=== PATIENT | male | born 1950 | race Caucasian/White ===

== ENCOUNTER 2018-12-24 06:42 | Inpatient (IN) ==
[~2018-12-24 06:42] MED LIST: ceFAZolin 1,000 MG, Sodium Chloride IRRigation 1,000 ML IR ONE
[2018-12-24] MEDS ORDERED: Heparin 1,000 UNITS/500 mL 500 ML ONE ×2 (06:55→08:15)
[2018-12-24] MEDS ORDERED: Clindamycin 900 MG/50 ML 900 MG/50 ML IV.SOLN IVPB ONE (06:59)
[2018-12-24] MEDS ORDERED: Lidocaine -MPF 4% 5 ML AMPUL ONE (07:04)
[2018-12-24] MEDS ORDERED: Ondansetron 4 MG/2 ML VIAL ONE (07:04)
[2018-12-24] MEDS ORDERED: *HR* Rocuronium Bromide 50 MG/5 ML VIAL ONE ×3 (07:04→11:35)
[2018-12-24] MEDS ORDERED: Dexamethasone 4 MG/ML VIAL ONE ×2 (07:04→10:22)
[2018-12-24] MEDS ORDERED: Lidocaine -MPF 2% 2 ML VIAL ONE (07:04)
[2018-12-24] MEDS ORDERED: *HR* Succinylcholine 200 MG/10 ML VIAL IVP ONE (07:04)
[2018-12-24] MEDS ORDERED: *HR* Propofol 200 MG/20 ML VIAL IVP ONE ×2 (07:06→11:48)
[2018-12-24] MEDS ORDERED: *HR* FentaNYL (PF) 100 MCG/2 ML VIAL ONE (07:06)
[2018-12-24] MEDS ORDERED: *HR* Midazolam HCl 5 MG/5 ML VIAL IVP ONE (07:07)
[2018-12-24] MEDS ORDERED: *HR* Phenylephrine 10 MG/ML VIAL ONE (07:11)
[2018-12-24] MEDS ORDERED: Sodium Bicarbonate 50 MEQ/50 ML VIAL ONE ×2 (07:15→11:18)
[2018-12-24] MEDS ORDERED: Furosemide 40 MG/4 ML VIAL ONE (07:15)
[2018-12-24] MEDS ORDERED: Mannitol 20% 100 GM/500 ML IV.SOLN IVC ONE (07:15)
[2018-12-24] MEDS ORDERED: Nitroglycerin 25 MG/250 ML INFUS..BTL IVC ONE ×2 (07:15→07:43)
[2018-12-24] MEDS ORDERED: Dexmedetomidine HCl 400 MCG/100 ML MLS IVC ONE (07:16)
[2018-12-24] MEDS ORDERED: Albumin Human 5% 25.0 GM/500 ML VIAL ONE (07:24)
[2018-12-24] MEDS ORDERED: EPHEDrine 50 MG/ML VIAL ONE (07:26)
[2018-12-24] MEDS ORDERED: Heparin 1,000 UNITS/500 mL 1,000 ML ONE (07:30)
--- NOTE | 2018-12-24 07:30 | Vascular/Endovascular H&P ---
Date of Encounter: 12/24/18 Time of Encounter: 07:28 Assessment and Plan (1) Abdominal aortic aneurysm (AAA) without rupture Current Visit: Yes Status: Chronic Asymptomatic expansion of abdominal aortic aneurysm to 5.[address] angiogram demonstrates marked tortuosity of the neck of the aneurysm making it inappropriate for endovascular repair. Patient is to be admitted and undergo open repair of aneurysm. (2) Coronary artery disease Current Visit: No Status: Chronic Patient has history of a silent [place]. She has been worked up with preoperative stress test. There are no signs of active ischemia. Patient has had a total of 3 previous cardiac catheterizations. The last was in 2013. The patient has no active cardiac symptoms. Qualifiers: Coronary Disease-Associated Artery/Lesion type: [place] artery [place] vs. transplanted heart: [place] heart Associated angina: without angina Qualified Code(s): I25.10 - Atherosclerotic heart disease of [place] coronary artery without angina pectoris (3) Hypertension Current Visit: Yes Status: Chronic Patient has chronic hypertension Qualifiers: Hypertension type: essential hypertension Qualified Code(s): I10 - Essential (primary) hypertension History of Present Illness Chief complaint: Abdominal aortic aneurysm HPI: Mr. Villareal is a 68 year old male Who was seen in referral for increasing size of abdominal aortic aneurysm. Patient had an aneurysm measured at 4.7 cm last year. On follow-up scan earlier this spring the aneurysm and now grown to 5.4 cm. The patient remains asymptomatic. There is no family history of aneurysm. Because of increase in size patient was referred to vascular surgery for treatment. For further information regarding this patient's history please refer to my clinic note in [facility] from November 20, 2018. Past Med Surg Social Fam HX - Past Medical History Medical history: coronary artery disease, diabetes, GERD, hyperlipidemia, hypertension, kidney stones, myocardial infarction, other Additional medical history: cataracts, CVD, silent myocardial ischemia, stable angina Psychiatric history: no psych history - Past Surgical History Surgical History: coronary bypass (CABG), other Additional surgical history: cardiac cath - Social History Smoking Status: Unknown if ever smoked Alcohol use: occasionally Drug use: none Medications and Allergies Allergy/AdvReac Type Severity Reaction Status Date / Time Penicillins Allergy Hives Verified 12/06/18 08:36 All Systems Review: The remainder of the systems were reviewed and are negative Exam Vital Signs, Last 4 Hours Temp Pulse Resp BP Pulse Ox 12/24/18 07:23 98.4 F 53 18 138/67 100 General: Present: Conversant, No Apparent Distress, Well developed, Well nourished HEENT: Present: Atraumatic, Normocephaly, Trachea midline Neck: Absent: JVD, Left Carotid bruit, Right Carotid bruit, Midline deformity, Tracheal deviation Cardiac: Present: Reg Rate and Rhythm, Normal S1 and S2 Lungs: Present: Normal Breath Sounds Neuro: Present: Alert and responsive Abdomen: Present: Soft, Non-tender, Other (Positive pulsatile mass corresponding to abdominal aortic aneurysm) Vascular: Present: Normal capillary refill. Absent: Clubbing, Cyanosis, Edema, Amputation(s) Skin: Present: No rashes noted on visualized skin
[2018-12-24] MEDS ORDERED: *HR* Norepinephrine 4 MG/4 ML VIAL IVC ONE (07:42)
[2018-12-24] MEDS ORDERED: *HR* Nitroprusside 50 MG VIAL IVC ONE (07:43)
--- NOTE | 2018-12-24 07:47 | Anesthesia Evaluation PreOp ---
Date of Encounter: 12/24/18 Time of Encounter: 07:49 - Past History Planned Operation: Open repair abdominal aortic aneurysm Cardiac History: [place], Angina (stable angina), HTN, Hyperlipidemia, Cardiac Surgery (1990), Other (excellent functional capacity) Pulmonary History: Former smoker (quit in 1990) [employer]OM[employer]BI[employer] History: Denies Any Significant HX Other Medical History: Renal (stones), GERD Anesthesia History: No Prior Anesthetic Complications Alcohol Use: occasionally Drug use: none Medications and Allergies Aspirin [Adult Aspirin] 81 mg PO DAILY 12/24/18 [History] Carvedilol 3.125 mg PO BID 12/24/18 [History] Gabapentin 600 mg PO BID 12/24/18 [History] Multivitamin [One Daily Essential] 1 tab PO DAILY 12/24/18 [History] [place]-3/Dha/Epa/Fish Oil [Fish Oil 1,000 mg Softgel] 1 cap PO DAILY 12/24/18 [History] Simvastatin [Zocor] 40 mg PO HS 12/24/18 [History] Allergy/AdvReac Type Severity Reaction Status Date / Time Penicillins Allergy Hives Verified 12/24/18 07:33 - Meds/Allergy Pre-op Review Medications Reviewed: Yes Allergies Reviewed: Yes Beta Blockers on Current Med List: Yes (coreg) If Beta Blockers taken, Date/Time (Last Dose taken): 12-24-18 coreg at 6 am Anesthesia Results - Labs Laboratory Tests 12/19/18 12/19/18 12/19/18 11:10 11:10 11:10 WBC 7.4 Hgb 14.1 Hct 41.8 Plt Count 214 PT 11.8 INR 1.0 APTT 31.6 Sodium 139 Potassium 4.6 Chloride 102 Carbon Dioxide 29 BUN 14 Creatinine 0.86 Est GFR ( Amer) > 60 Est GFR (Non-Af Amer) > 60 BUN/Creatinine Ratio 16 Glucose 91 Calculated Osmolality 288 Calcium 9.8 - Imaging Additional studies: CT: IMPRESSION: 1. Fusiform infrarenal abdominal aortic aneurysm measuring 5.4 cm maximally. Mural thrombus throughout the aneurysmal segment. 90 degrees apex right angulation of the proximal aortic neck. 2. 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 No other significant inflow disease. 3. No acute findings within the abdomen or pelvis. Previous cholecystectomy. 4. Colonic diverticulosis with no acute features. 5. Mild diffuse bladder wall thickening, likely accentuated by incomplete distention. Correlate for possible cystitis or bladder outlet obstruction. 6. Subpleural fibrotic changes at the lung bases. Nuclear stress: Indications: Pre-operative Impression: No perfusion evidence for ischemia. Small sized, moderate intensity fixed perfusion defect involving the distal anteroseptum and apex. Findings represent infarct. Small sized, moderate intensity fixed perfusion defect involving the distal inferolateral wall. Findings represent infarct. Pharmacologic stress ECG is negative for ischemia at level of heart rate achieved. Gated EF = 55%. Anesthesia Exam Last Vital Signs Temp 98.4 F 12/24/18 07:23 Pulse 53 12/24/18 07:23 Resp 18 12/24/18 07:23 BP 138/67 12/24/18 07:23 Pulse Ox 100 12/24/18 07:23 Weight: 75 kg NPO (# of Hours): > 8 hrs - HEENT Pupil (Motor): Pupils equal, EOMI Mallampati: II Teeth: Normal, Missing Denture Type: Upper: Complete Oral Opening: Greater than 3 - AUTOMO[employer] LOC: Oriented - Cardiac Rhythm: Regular Murmur: None - Pulmonary Breath Sounds: bilateral Clear Respiratory Effort: Symmetrical Anesthesia Assess/Plan ASA Score: 3 Level of consciousness: Cooperative Anesthetic Plan: General, Regional Nerve Block (TAP block) Regional Nerve Block Plan: TAP Monitoring Plan: Standard Monitors, A-Line, CVC Recovery Plan: PACU
[2018-12-24] MEDS ORDERED: CeFAZolin Syr 2,000MG/20 ML 2,000 MG/20 ML SYRINGE IVPB ONE (07:50)
[2018-12-24] MEDS ORDERED: *HR* OxyCODONE Immed Rel 5 MG TABLET PO PRN (07:51)
[2018-12-24] MEDS ORDERED: Acetaminophen IV 1,000 MG/100 ML INFUS..BTL IVPB ONE (07:51)
[2018-12-24] MEDS ORDERED: *HR* Metoprolol 5 MG/5 ML VIAL IVP PRN (07:51)
[2018-12-24] MEDS ORDERED: *HR* Vasopressin 20 UNIT/ML VIAL ONE (08:06)
[2018-12-24] MEDS ORDERED: ROPIVACAINE/PF/NS SYRINGE INTRAART ONE (08:12)
--- NOTE | 2018-12-24 09:09 | Anesthesia Procedures ---
Date of Encounter: 12/24/18 Time of Encounter: 09:00 Procedures: Anesthesia - Central Line Placement Right IJ Consent obtained: written consent Supplemental Oxygen via Nasal Cannula (L/min): 2 (ETT; patient under General Anesthesia) MD prep: mask, gown, gloves Central line prep: Chlorhexidine scrub, sterile drapes applied Amount of Anesthetics Used (mls): 0 (patient under General Anesthesia) Ultrasound used for placement: Yes Technique: Seldinger Lumen Inserted: Introducer Size / Length: 9 Fr / 10 cm Post procedure: sutured in place, good blood return, all ports aspirated, flushed, capped, sterile dressing applied Patient tolerated procedure: well, no complications Complications: none
[2018-12-24 09:36] LABS: ABG Base Excess -4 mEq/L (-2 to 3); ABG Chloride 109 mEq/L (98-107); ABG Glucose 105 mg/dL (60-95); ABG HCO3 22 mEq/L (21-27); ABG Ionized Calcium 1.24 mmol/L (1.15-1.35); ABG Oxygen Saturation 100 % (95-98); ABG PCO2 41 mmHg (35-45); ABG PH 7.33 pH Units (7.32-7.45); ABG PO2 239 mmHg (85-104); ABG TCO2 23 mEq/L (20-26)
[2018-12-24] MEDS ORDERED: *HR* Heparin 5,000 UNIT/ML VIAL ONE ×3 (10:10→11:58)
[2018-12-24 10:44] LABS: ABG Base Excess 0 mEq/L (-2 to 3); ABG Chloride 108 mEq/L (98-107); ABG Glucose 138 mg/dL (60-95); ABG HCO3 25 mEq/L (21-27); ABG Ionized Calcium 1.07 mmol/L (1.15-1.35); ABG Oxygen Saturation 100 % (95-98); ABG PCO2 41 mmHg (35-45); ABG PH 7.39 pH Units (7.32-7.45); ABG PO2 255 mmHg (85-104); ABG TCO2 26 mEq/L (20-26)
[2018-12-24] MEDS ORDERED: SUGAMMADEX SODIUM 500 MG/5 ML VIAL IV ONE (10:47)
[2018-12-24] MEDS ORDERED: *HR* PHENYLEPHRINE 1,000 MCG/10 ML SYRINGE IVP ONE (11:39)
[2018-12-24] MEDS ORDERED: *HR* HYDROMORPHONE 2 MG/ML VIAL ONE (11:42)
[2018-12-24 11:43] LABS: VBG Base Excess -3 mEq/L; VBG Chloride 107 mEq/L (98-107); VBG Glucose 141 mg/dl (65-95); VBG HCO3 22 mEq/L (21-27); VBG Ionized Calcium 1.27 mmol/L (1.15-1.35); VBG Oxygen Saturation 100 %; VBG PCO2 40 mmHg (41-51); VBG PH 7.35 pH Units (7.32-7.42); VBG PO2 259 mmHg (25-50); VBG Total CO2 24 mEq/L
[2018-12-24 12:09] LABS: ABG Base Excess 1 mEq/L (-2 to 3); ABG Chloride 109 mEq/L (98-107); ABG Glucose 138 mg/dL (60-95); ABG HCO3 26 mEq/L (21-27); ABG Ionized Calcium 1.01 mmol/L (1.15-1.35); ABG Oxygen Saturation 100 % (95-98); ABG PCO2 39 mmHg (35-45); ABG PH 7.43 pH Units (7.32-7.45); ABG PO2 274 mmHg (85-104); ABG TCO2 27 mEq/L (20-26)
--- NOTE | 2018-12-24 12:49 | Operative Note ---
Date of procedure: 12/24/18 Pre-op diagnosis: AAA Post-op diagnosis: same Procedure: AAA repair with 18 x 9 mm Aorto-BiIliac bypass graft Complications: 0 Anesthesia: GETA Surgeon: Eamon Lee Co-Surgeon: Trace Vieira Was there an anesthetic assistant present: No Estimated blood loss (cc): 600 Specimen: 0 Condition: stable Disposition: ICU Procedure in Detail: History Mr. Jang is a 68-year-old white male with a known abdominal aortic aneurysm. This aneurysm has increased in size from 4.7-5.4 over this past year. It is remained asymptomatic. Because of the rapid increase in size patient was recommended to undergo repair of the aneurysm. The patient had a very tortuous neck all up to 90 degrees and was judged not to be an appropriate candidate for an endovascular stent graft. Therefore the patient required open repair. He slept procedure. His past history is significant for silent PR and hypertension. Procedure After informed consent was obtained the patient was taken to the operating room. General endotracheal anesthesia was established under arterial line pressure monitoring. The abdomen and groin and upper thighs were sterilely prepped and draped. A timeout protocol was observed. A 2 team surgical approach was used due to the complexity of the case and to facilitate decreased operative time and minimal blood loss. A vertical midline incision was used. This was opened into the peritoneal cavity. Peritoneal cavity was explored. There were mild to moderate adhesions in the right upper quadrant. These were relatively easy to take down. There was inflammatory changes associated with the gallbladder area. The liver itself was normal in size and soft. The remaining evaluation of the abdominal contents was within normal limits with the exception of the obvious abdominal aortic aneu rysm. This viscera was was then reflected into the right upper quadrant. The retroperitoneum was opened. Dissection was carried down to the aneurysm. The aneurysm was then dissected proximally and distally. Control was obtained below the renal arteries. Distally the control was obtained onto the distal portion of the common iliac arteries bilaterally. 5000 units of heparin were administered intravenously. After 3 minute delay the distal common iliac arteries were crossclamped. Then an infrarenal aortic cross-clamp was applied. The aorta was opened and a vertical incision. Large amount of chronic mural thrombus was removed. There was two back bleeding lumbars that required suture ligation. In addition there was retrograde bleeding from the inferior mesenteric artery. This also was ligated with 3-0 silk suture. The neck of the aneurysm was identified. An 18 x 9 mm Dacron prosthesis was selected. This was cut to size. The proximal anastomosis was then performed an end-to-end configuration using 3-0 Prolene sutures. After cross clamping the distal aspect of the graft the proximal clamps were removed. The proximal area was inspected for hemostasis. With this achieved the distal anastomoses were accomplished. The aneurysm was opened to extend down on into the iliac arteries. The right limb was anastomosed first in an end-to-end configuration to the distal aspect of the right common iliac artery. Leaving a small space open the area was flushed both retrograde and antegrade. After hemostasis was achieved the graft was opened and pulsatile flow was returned into the right pelvis and into the right lower extremity. The patient had only mild change in his hemodynamics which was easily corrected. Attention was then immediately focused on the left side. Again the graft was cut to size and the end-to-end anastomosis was performed to the distal aspect of the left common iliac artery. 4-0 Prolene suture was used for this anastomosis as well. After appropriate backbleeding and flushing this graft was open. The patient had no hemodynamic distress with these maneuvers. Excellent palpable femoral pulses were identified bilaterally. Hemostasis was achieved at all locations. The retroperitoneum was then irrigated with antibiotic-containing solution. The residual sac of the aneurysm was then approximated around the synthetic graft. Then the retroperitoneum was reapproximated over the aorta itself. With this done the viscera was replaced back into the abdominal cavity in its appropriate location. The left colon and sigmoid were inspected for any signs of ischemia and none were found. There were no signs of intraperitoneal bleeding. The NG tube was inspected to be in appropriate position. The fascia of the abdomen was then reapproximated using looped PDS suture. The deep subcutaneous tissue was closed with running 2-0 Vicryl and the skin edges were approximated using 4-0 Vicryl. Local anesthesia was infiltrated into the wound. A dry sterile dressing was applied. The patient was extubated in the operating room. He was transported from the operating room to the intensive care unit in stable condition. The patient did not require any hemodynamic drips. The patient received approximately 380 mL's of cell saver blood returned to him during the operation. No bank blood was transfused. His feet were warm and pink at the conclusion of the operation.
[2018-12-24] MEDS ORDERED: NiCARdipine 2.5 MG/10 ML Syringe IVPB ONE (13:08)
--- NOTE | 2018-12-24 13:49 | Operative Note ---
Date of procedure: 12/24/18 Pre-op diagnosis: 5.4cm Juxtarenal abdominal aortic aneurysm Post-op diagnosis: same Procedure: Aorto biiliac bypass graft with Hemashield Dacron bifurcated graft. Complications: None Anesthesia: GETA Surgeon: Trace Vieira Co-Surgeon: Eamon Lee Was there an assistant child care teacher present: No Estimated blood loss (cc): 600 (380 mL returned via Cell Saver) Specimen: None Condition: stable Disposition: PACU Procedure in Detail: Indications: The patient is a 68 year old male with a history of hypertension, hyperlipidemia, coronary artery disease with prior myocardial infarction and diabetes who was found to have an enlarging 5.4 cm abdominal aortic aneurysm. The morphology of the proximal neck of his aneurysm does not appear to be sufficient for endograft placement. Repair was recommended to reduce his risk of rupture. Procedure: The patient was identified in the preoperative area. The risks, benefits, and alternatives of the procedure were discussed. All questions were answered. The patient was taken to the operating room and placed in supine position on the operating room table. After the induction of general endotracheal anesthesia, he was cleaned and draped in normal sterile fashion. A two surgeon approach was utilized for this procedure in order to minimize anesthetic time and the risks for complications due to the patients comorbid conditions. In addition, a two surgeon approach was used for intraoperative decision making. A midline incision was made sharply. Hemaostasis was obtained via electrocautery. Through a process of blunt, sharp and electrocautery diss ection, the subcutaneous tissue, fascia and peritoneum were traversed. A brief exporation of the peritoneum revealed no acute pathology. The aorta was palpated in the retroperitoneum. The retroperitoneum was opened with blunt, sharp and electrocautery dissection. The aorta was dissected along it's anterior, medial and lateral surfaces to below the renal arteries. The dissection was extended down to the aortic bifurcation. The patient was then performed along the bilateral common iliac artery to the iliac artery bifurcations. Proximally the bilateral iliac arteries have significant athe rosclerotic plaque. Distally the appeared soft. The patient received 500 units of intravenous heparin and additional heparin throughout the case to maintain anticoagulation. An 18 x 9 mm dacron bifurcated graft was cut to appropriate length. The infrarenal aorta was clamped proximally and the distal bilateral common iliac arteries were clamped distally. A longitudinal incision was made into the aorta between the clamps. Significant plaque and thrombus was removed. Lumbar vessels were oversewn with silk suture. The inferior mesenteric artery was noted to have profuse backbleeding and was ligated with silk suture. The aorta was infused with heparinized saline. The graft was cut to fit the neck of the aneurysm and sutured in place with a running 3-0 prolene. After completing the proximal anastamosis, the graft limbs were clamped and the aorta was reopened. Thrombin and gelfoam were used to aid in hemostasis. A longitudinal arteriotomy was extended into the right common iliac artery. The right limb of the graft was cut to fit the distal right common iliac arteriotomy. The graft was then sutured in place with a running 4-0 Prolene. Prior to completing the anastomosis, the right common iliac artery was flushed through the graft anastamoses and heparin was infused into the lumen. The anastamoses were completed and flow was restored in the right lower extremity. Thrombin and gelfoam were used to aid in hemostasis. A longitudinal arteriotomy was extended into the left common iliac artery. The left limb of the graft was cut to fit the distal left common iliac arteriotomy. The graft was then sutured in place with a running 4-0 Prolene. Prior to completing the anastomosis, the left common iliac artery was flushed through the graft anastamoses and heparin was infused into the lumen. The anastamoses were completed. After assuring appropriate hemodynamics were present, flow was restored to the left lower extremity. Thrombin and gelfoam were used to aid in hemostasis. Polyphasic signals were noted distal to the anastamoses. The abdomen and pelvis were irrigated with antibiotic containing saline. Meticulous hemostasis was obtained throughout the retroperitoneum with electrocautery. The retroperitoneum was reapproximated with 2-0 Vicryl. A brief exploration of the abdomen revealed no evidence of acute ischemia or other pathology. The abd ominal contents were returned to their normal anatomic position The nasogastric tube was checked for position. The midline fascia was reapproximated with looped PDS suture. The subcutaneous tissue was reapproximated with 2-0 Vicryl. 4-0 Vicryl was used to reapproximate the skin. Sterile dressings were applied. The patient was extubated and taken to recovery room in stable condition.
[2018-12-24] MEDS: Ringers Solution, Lactated 1,000 ML IVC SCH ×3 (14:05→14:07)
[2018-12-24] MEDS ORDERED: Ondansetron 4 MG/2 ML VIAL IVP PRN (14:08)
[2018-12-24] MEDS ORDERED: Naloxone 0.4 MG/ML INJ IVP PRN (14:08)
[2018-12-24] MEDS ORDERED: OXYCODONE Oral CONC 10 MG/0.5 ML ORAL.SYG SL PRN (14:08)
[2018-12-24 15:57] LABS: Basophils % 0.1 %; Eosinophils % 0.1 %; Hematocrit 33.8 % (37.5-50.1); Immature Granulocytes % 0.4 % (0-4); Lymphocytes # 0.9 K/mcL (0.6-4.6); Lymphocytes % 6.6 %; Mean Corpuscular Hemoglobin 33.1 pg (28.0-33.3); Mean Corpuscular Volume 97.4 fL (83.0-100.0); Mean Platelet Volume 9.7 fL (9.4-12.4); Monocytes # 0.8 K/mcL (0.0-1.3); Monocytes % 5.7 %; Neutrophils # 12.2 K/mcL (1.6-8.9); Platelet Count 147 K/mcL (140-400); Red Blood Count 3.47 M/mcL (4.19-5.50); Red Cell Distribution Width 12.7 % (11.5-14.5); Segmented Neutrophils % 87.1 %
[2018-12-24 16:02] LABS: Hemoglobin 11.5 g/dL (12.9-16.9)
[2018-12-24 16:22] LABS: BUN/Creatinine Ratio 16 (6-26); Blood Urea Nitrogen 12 mg/dL (8-23); Calcium 8.5 mg/dL (8.6-10.3); Carbon Dioxide 28 mEq/L (23-29); Chloride 106 mEq/L (98-107); Glucose 147 mg/dL (70-105); Osmolality,Calculated 292 (280-300); Potassium 3.5 mEq/L (3.5-5.1); Sodium 140 mEq/L (136-145); eGFR For Non-African Americans > 60 (> 60)
[2018-12-24] MEDS: OXYCODONE Oral CONC 10 MG/0.5 ML ORAL.SYG SL PRN ×2 (16:45→21:06)
[2018-12-24] MEDS: Famotidine 20 MG/2 ML VIAL IVP SCH (18:05)
[2018-12-24] MEDS ORDERED: Ipratropium/Albuterol Neb 3 ML IH PRN (18:38)
--- NOTE | 2018-12-24 19:15 | Pulmonology Consult Note ---
Date of Encounter: 12/24/18 Time of Encounter: 16:00 Assessment and Plan (1) Acute respiratory failure Current Visit: Yes Status: Acute Most likely after prolonged surgery postoperative atelectasis blood gas looks stable adequate oxygenation and ventilation will can liberate oxygen as tolerated. Once patient pain is under control tomorrow patient can sit up if primary surgical team is okay with that and do some incentive spirometry if tolerated. Chest x-ray was reviewed and did not show evidence of focal consolidation or pulmonary edema. The left basal opacity can be due to atelectasis. Qualifiers: Respiratory failure complication: hypoxia Qualified Code(s): J96.01 - Acute respiratory failure with hypoxia (2) Abdominal aortic aneurysm (AAA) without rupture Current Visit: Yes Status: Chronic Patient had infrarenal AAA repair with mean with full loss around fine and 500 ml of blood. 350 mL was given through Cell Saver. Since patient has infrarenal AAA low risk for postoperative acute kidney injury will monitor the urine output urine output taper can give crystalloid. (3) Coronary artery disease Current Visit: No Status: Chronic -Risk for postoperative PR 24-48 hours to control the blood pressure control and afterload and preload to maintain sinus rhythm to start on home carvedilol. Qualifiers: Coronary Disease-Associated Artery/Lesion type: [place] artery [place] vs. transplanted heart: [place] heart Associated angina: without angina Qualified Code(s): I25.10 - Atherosclerotic heart disease of [place] coronary artery w ithout angina pectoris (4) Hypertension Current Visit: Yes Status: Chronic To start him on home medication by mouth carvedilol whenever he can take By mouth according to surgery if his blood pressure rises above 160 we can give when necessary hydralazine or labetalol. Qualifiers: Hypertension type: essential hypertension Qualified Code(s): I10 - Essential (primary) hypertension History of Present Illness Consult date: 12/24/18 Requesting physician: Eamon Lee Reason for consult: abnormal CXR/CT Chief complaint: Post AAA repair History of present illness: 68-year-old male with past medical history significant for hypertension, coronary artery disease patient is on beta blockers, patient was evaluated for AAA repair stress test was negative according to chart review patient has good exercise tolerance and denied any exertional angina patient had a abdominal aortic aneurysm which is slowly enlarging underwent elective abdominal aortic aneurysm repair today in the OR patient had an uneventful procedure patient had an infrarenal aneurysm. Patient had 350 ML of blood loss during the procedure. Pulmonary was consulted for postoperative management in the intensive care. Patient is slowly waking up from anesthesia patient did not participate in review of systems. Past Med Surg Social Fam HX - Past Medical History Medical history: coronary artery disease, diabetes, GERD, hyperlipidemia, hypertension, kidney stones, myocardial infarction, other Additional medical history: cataracts, CVD, silent myocardial ischemia, stable angina Psychiatric history: no psych history - Past Surgical History Surgical History: coronary bypass (CABG), other Additional surgical history: cardiac cath - Social History Smoking Status: Unknown if ever smoked Alcohol use: none Drug use: none Medications and Allergies Aspirin [Adult Aspirin] 81 mg PO DAILY 12/24/18 [History] Carvedilol 3.125 mg PO BID 12/24/18 [History] Gabapentin 600 mg PO BID 12/24/18 [History] Multivitamin [One Daily Essential] 1 tab PO DAILY 12/24/18 [History] [place]-3/Dha/Epa/Fish Oil [Fish Oil 1,000 mg Softgel] 1 cap PO DAILY 12/24/18 [History] Simvastatin [Zocor] 40 mg PO HS 12/24/18 [History] Allergy/AdvReac Type Severity Reaction Status Date / Time Penicillins Allergy Hives Verified 12/24/18 07:33 ROS unobtainable: due to mental status All Systems: The remainder of the systems were reviewed and are negative Physical Examination Vital Signs: Vital Signs, Last 4 Hours Temp Pulse Resp BP Pulse Ox 12/24/18 18:00 77 18 124/55 99 12/24/18 17:00 87 19 141/60 88 12/24/18 16:39 97.3 F L 12/24/18 16:15 97.3 F L 72 13 135/56 100 General appearance: appears uncomfortable Eyes: nonicteric ENT: oropharynx moist Auscultation: bilateral: diminished breath sounds (Basilar diminished breath sounds) Cardiovascular: regular rate and rhythm Gastrointestinal: hypoactive bowel sounds Extremities: no edema unable to assess due to mental status Results - Laboratory Findings CBC and BMP: 12/24/18 15:11 12/24/18 15:11 ABG ABG pH 7.43 pH Units (7.32-7.45) 12/24/18 12:04 ABG pCO2 39 mmHg (35-45) 12/24/18 12:04 ABG pO2 274 mmHg (85-104) H 12/24/18 12:04 ABG O2 Saturation 100 % (95-98) H 12/24/18 12:04 Abnormal lab findings: Abnormal lab results WBC 14.0 K/mcL (4.3-11.1) H D 12/24/18 15:11 RBC 3.47 M/mcL (4.19-5.50) L 12/24/18 15:11 Hgb 11.5 g/dL (12.9-16.9) L D 12/24/18 15:11 Hct 33.8 % (37.5-50.1) L 12/24/18 15:11 12.2 K/mcL (1.6-8.9) H 12/24/18 15:11 ABG pO2 274 mmHg (85-104) H 12/24/18 12:04 ABG Total CO2 27 mEq/L (20-26) H 12/24/18 12:04 ABG O2 Saturation 100 % (95-98) H 12/24/18 12:04 ABG Base Excess -4 mEq/L (-2 to 3) L 12/24/18 09:31 ABG Hematocrit 27.0 % (37.5-50.1) L 12/24/18 12:04 ABG Chloride 109 mEq/L (98-107) H 12/24/18 12:04 VBG pCO2 40 mmHg (41-51) L 12/24/18 11:39 VBG pO2 259 mmHg (25-50) H 12/24/18 11:39 VBG Hematocrit 31.0 % (37.5-50.1) L 12/24/18 11:39 Glucose 138 mg/dL (60-95) H 12/24/18 12:04 Glucose 147 mg/dL (70-105) H 12/24/18 15:11 Whole Bld Glucose 141 mg/dl (65-95) H 12/24/18 11:39 Calcium 8.5 mg/dL (8.6-10.3) L 12/24/18 15:11 1.01 mmol/L (1.15-1.35) L 12/24/18 12:04 Crossmatch See Detail 12/19/18 11:10 - Clinical Findings Intake & Output: Intake & Output 12/24/18 12/24/18 12/24/18 07:59 15:59 23:59 Intake Total 200 / 200 Output Total 950 / 1050 100 / 1050 Balance -750 / -850 -100 / -850 Weight 74.843 kg Consult Discharge Plan - Plan Referrals: Madison Saavedra, HEALTH CARE FACILITIES INSPECTOR [Primary Care Provider] -
[2018-12-24] MEDS: Ketorolac 15 MG/ML VIAL IVP PRN (19:41)
[2018-12-25] MEDS: OXYCODONE Oral CONC 10 MG/0.5 ML ORAL.SYG SL PRN ×5 (03:16→22:24)
[2018-12-25 04:19] LABS: ABG Base Excess 2 mEq/L (-2 to 3); ABG HCO3 27 mEq/L (21-27); ABG Oxygen Saturation 97 % (95-98); ABG PCO2 42 mmHg (35-45); ABG PH 7.41 pH Units (7.32-7.45); ABG PO2 85 mmHg (85-104); ABG TCO2 28 mEq/L (20-26)
[2018-12-25 04:39] LABS: Basophils % 0.1 %; Hemoglobin 11.1 g/dL (12.9-16.9); Immature Granulocytes % 0.6 % (0-4); Lymphocytes # 1.2 K/mcL (0.6-4.6); Lymphocytes % 7.4 %; Mean Corpuscular HGB Conc 33.6 g/dL (31.6-35.5); Mean Corpuscular Hemoglobin 32.8 pg (28.0-33.3); Mean Corpuscular Volume 97.6 fL (83.0-100.0); Mean Platelet Volume 9.6 fL (9.4-12.4); Monocytes # 1.3 K/mcL (0.0-1.3); Monocytes % 8.4 %; Neutrophils # 13.1 K/mcL (1.6-8.9); Platelet Count 152 K/mcL (140-400); Red Blood Count 3.38 M/mcL (4.19-5.50); Red Cell Distribution Width 12.7 % (11.5-14.5); Segmented Neutrophils % 83.5 %
[2018-12-25 04:57] LABS: BUN/Creatinine Ratio 21 (6-26); Blood Urea Nitrogen 17 mg/dL (8-23); Calcium 8.6 mg/dL (8.6-10.3); Carbon Dioxide 26 mEq/L (23-29); Chloride 105 mEq/L (98-107); Glucose 138 mg/dL (70-105); Osmolality,Calculated 294 (280-300); Potassium 3.8 mEq/L (3.5-5.1); Sodium 140 mEq/L (136-145); eGFR For Non-African Americans > 60 (> 60)
[2018-12-25] MEDS: Famotidine 20 MG/2 ML VIAL IVP SCH ×2 (06:07→18:13)
--- NOTE | 2018-12-25 09:34 | Vascular/Endovas Progress Note ---
Date of Encounter: 12/25/18 Time of Encounter: 08:15 - Assessment and plan (1) Abdominal aortic aneurysm (AAA) without rupture Current Visit: Yes Status: Chronic Patient is postoperative day #1 following open repair of abdominal aortic aneurysm. Patient has remained hemodynamically stable. Patient has had no issues in regards to cardiac pulmonary or renal issues. Patient is fit for transfer to [address] [place] [address]. We'll continue nasogastric suction and nothing by mouth status. Patient to be up in chair and to begin ambulation. (2) Coronary artery disease Current Visit: No Status: Chronic Patient is hemodynamically stable. No signs of cardiac issues. Qualifiers: Coronary Disease-Associated Artery/Lesion type: [place] artery [place] vs. transplanted heart: [place] heart Associated angina: without angina Qualified Code(s): I25.10 - Atherosclerotic heart disease of [place] coronary artery without angina pectoris (3) Hypertension Current Visit: Yes Status: Chronic Patient has chronic hypertension. Blood pressure has been stable postoperatively. Qualifiers: Hypertension type: essential hypertension Qualified Code(s): I10 - Essential (primary) hypertension - Subjective Interval history: Patient is postoperative day #1 in the intensive care unit. He had an uneventful night. Patient planes of incisional pain. Patient denies any leg pain. Vital Signs, Last 4 Hours Temp Pulse Resp BP Pulse Ox 12/25/18 08:58 67 17 107/61 93 12/25/18 07:52 98.5 F 12/25/18 07:00 98.5 F 69 17 89/80 92 12/25/18 06:00 63 16 124/50 99 - Physical Examination General: Present: Conversant, No Apparent Distress HEENT: Present: Atraumatic, Normocephaly Neck: Absent: JVD Cardiac: Present: Reg Rate and Rhythm, Normal S1 and S2 Lungs: Present: Normal Breath Sounds, No Wheeze, Rales, Rhonchi Neuro: Present: Alert and responsive, No focal deficits noted, Cranial nerves grossly intact Vascular: Present: Normal capillary refill, Pulse, normal, Surgical incisions (Dry dressings on abdominal incision). Absent: Cyanosis, Edema Abdomen: Present: Soft, Other (No bowel sounds) Skin: Present: No rashes noted on visualized skin Results 12/25/18 04:13 12/25/18 04:13 Lab Results, Last 24 hours 12/24/18 12/24/18 12/25/18 15:11 15:11 04:13 WBC 14.0 H D 15.7 H Hgb 11.5 L D 11.1 L Hct 33.8 L 33.0 L Plt Count 147 152 Sodium 140 Potassium 3.5 Chloride 106 Carbon Dioxide 28 BUN 12 Creatinine 0.77 Glucose 147 H Calcium 8.5 L 12/25/18 04:13 WBC Hgb Hct Plt Count Sodium 140 Potassium 3.8 Chloride 105 Carbon Dioxide 26 BUN 17 Creatinine 0.81 Glucose 138 H Calcium 8.6 Consult Discharge Plan - Plan Referrals: Madison Saavedra, MANAGER GREEN [Primary Care Provider] -
[2018-12-25] MEDS: Ketorolac 15 MG/ML VIAL IVP PRN (10:12)
--- NOTE | 2018-12-25 11:21 | Anesthesia Procedures ---
Date of Encounter: 12/25/18 Time of Encounter: 12:50 Procedures: Anesthesia - Nerve Block Procedure Date: 12/24/18 Time: 12:50 Allergies/Adv Reactions: PCN Pre-op Diagnosis: AAA Surgical Procedure: Open Repair of AAA Checklist: Correct Patient Identifier, Correct procedure, History checked Blood Thinner: No Monitor Applied: EKG, BP, Pulse Oximetry Supplemental Oxygen via Nasal Cannula (L/min): 2 (Under GA with ETT) Indication: Post Op Analgesia Pre-op Neuro Deficits: No Block Type: Other (Bilateral Subcostal TAP Blocks, Bilateral Mid Axillary TAP Blocks) Catheter placed: No Sterile Technique: Yes Ultrasound used: Yes Anatomy identified: Yes Visual spread of Local: Yes Neuro Stimulation: No Blood on Needle Aspiration: No Smooth Injection of Local: Yes Pain with Injection of Local: No Prep: Chlorhexadine Needle: 21 x 100 mm Stimuplex Local: Ropivacaine (Bilateral Subcostal TAP Blocks (0.25% Ropivacaine- 20mL at each site), Bilateral Mid Axillary TAP Blocks (0.25% Ropivacaine - 20mL at each site.)) Number of Attempts: 1 Complications: None/effective block Vitals: See Anesthesia Record. VSS Throughout Procedure.
--- NOTE | 2018-12-25 11:45 | Pulmonology Progress Note ---
Date of Encounter: 12/25/18 Time of Encounter: 08:00 Assessment and Plan (1) Acute respiratory failure Current Visit: Yes Status: Resolved Patient is liberated from oxygen. Qualifiers: Respiratory failure complication: hypoxia Qualified Code(s): J96.01 - Acute respiratory failure with hypoxia (2) Abdominal aortic aneurysm (AAA) without rupture Current Visit: Yes Status: Chronic Patient had an eventful abdominal aortic aneurysm repair. (3) Coronary artery disease Current Visit: No Status: Chronic Start back on carvedilol. Qualifiers: Coronary Disease-Associated Artery/Lesion type: [place] artery [place] vs. transplanted heart: [place] heart Associated angina: without angina Qualified Code(s): I25.10 - Atherosclerotic heart disease of [place] coronary artery without angina pectoris (4) Hypertension Current Visit: Yes Status: Chronic Started on home medication. Qualifiers: Hypertension type: essential hypertension Qualified Code(s): I10 - Essential (primary) hypertension Subjective Principal diagnosis: Post AAA repair Interval history: Patient does not have any acute events overnight. Objective PUL Vital signs: Last Vital Signs Temp 98.5 F 12/25/18 07:52 Pulse 64 12/25/18 11:00 Resp 19 12/25/18 11:00 BP 112/62 12/25/18 11:00 Pulse Ox 93 12/25/18 11:00 General appearance: no acute distress Eyes: nonicteric ENT: oropharynx moist Auscultation: bilateral: diminished breath sounds (Minimally diminished in the bases) Cardiovascular: regular rate and rhythm Gastrointestinal: normoactive bowel sounds Extremities: no edema normal mental status, non-focal exam mood appropriate Results - Laboratory Findings CBC and BMP: 12/25/18 04:13 12/25/18 04:13 ABG ABG pH 7.41 pH Units (7.32-7.45) 12/25/18 04:16 ABG pCO2 42 mmHg (35-45) 12/25/18 04:16 ABG pO2 85 mmHg (85-104) 12/25/18 04:16 ABG O2 Saturation 97 % (95-98) 12/25/18 04:16 Abnormal lab findings: Abnormal lab results WBC 15.7 K/mcL (4.3-11.1) H 12/25/18 04:13 RBC 3.38 M/mcL (4.19-5.50) L 12/25/18 04:13 Hgb 11.1 g/dL (12.9-16.9) L 12/25/18 04:13 Hct 33.0 % (37.5-50.1) L 12/25/18 04:13 13.1 K/mcL (1.6-8.9) H 12/25/18 04:13 ABG pO2 274 mmHg (85-104) H 12/24/18 12:04 ABG Total CO2 28 mEq/L (20-26) H 12/25/18 04:16 ABG O2 Saturation 100 % (95-98) H 12/24/18 12:04 ABG Base Excess -4 mEq/L (-2 to 3) L 12/24/18 09:31 ABG Hematocrit 27.0 % (37.5-50.1) L 12/24/18 12:04 ABG Chloride 109 mEq/L (98-107) H 12/24/18 12:04 VBG pCO2 40 mmHg (41-51) L 12/24/18 11:39 VBG pO2 259 mmHg (25-50) H 12/24/18 11:39 VBG Hematocrit 31.0 % (37.5-50.1) L 12/24/18 11:39 Glucose 138 mg/dL (60-95) H 12/24/18 12:04 Glucose 138 mg/dL (70-105) H 12/25/18 04:13 Whole Bld Glucose 141 mg/dl (65-95) H 12/24/18 11:39 POC Glucose 144 mg/dL (70-99) H 12/24/18 23:42 Calcium 8.5 mg/dL (8.6-10.3) L 12/24/18 15:11 1.01 mmol/L (1.15-1.35) L 12/24/18 12:04 Crossmatch See Detail 12/19/18 11:10 - Clinical Findings Intake & Output: Intake & Output 12/24/18 12/25/18 12/25/18 23:59 07:59 15:59 Intake Total 100 / 200 100 / 200 Output Total 225 / 1175 700 / 900 200 / 900 Balance -225 / -975 -600 / -700 -100 / -700 Weight 80.7 kg Consult Discharge Plan - Plan Referrals: Madison Saavedra CNP [Primary Care Provider] -
[2018-12-25] MEDS ORDERED: Ringer's Solution, Lactated 250 ML IV.SOLN IVC SCH (18:00)
[2018-12-25] MEDS ORDERED: Ringers Solution, Lactated 1,000 ML ONE (18:01)
[2018-12-25] MEDS ORDERED: Ringers Solution, Lactated 1,000 ML IVC SCH (18:45)
[2018-12-26] MEDS: Famotidine 20 MG/2 ML VIAL IVP SCH ×2 (06:11→17:44)
[2018-12-26 08:55] LABS: Basophils % 0.2 %; Eosinophils % 0.1 %; Hematocrit 32.7 % (37.5-50.1); Immature Granulocytes % 0.5 % (0-4); Lymphocytes # 1.6 K/mcL (0.6-4.6); Lymphocytes % 9.7 %; Mean Corpuscular HGB Conc 33.6 g/dL (31.6-35.5); Mean Corpuscular Hemoglobin 33.4 pg (28.0-33.3); Mean Corpuscular Volume 99.4 fL (83.0-100.0); Mean Platelet Volume 9.6 fL (9.4-12.4); Monocytes # 1.7 K/mcL (0.0-1.3); Monocytes % 10.3 %; Platelet Count 145 K/mcL (140-400); Red Blood Count 3.29 M/mcL (4.19-5.50); Red Cell Distribution Width 12.8 % (11.5-14.5); Segmented Neutrophils % 79.2 %
--- NOTE | 2018-12-26 11:24 | Vascular/Endovas Progress Note ---
Date of Encounter: 12/26/18 Time of Encounter: 08:30 - Assessment and plan (1) Abdominal aortic aneurysm (AAA) without rupture Current Visit: Yes Status: Chronic Patient is postoperative day #2 following open repair of abdominal aortic aneurysm. Patient has remained hemodynamically stable. Patient has had no issues in regards to cardiac pulmonary or renal issues. Patient remains fit for transfer to [address] [place] [address]. We'll continue nasogastric suction and nothing by mouth status. Patient to be up in chair and to begin ambulation. (2) Coronary artery disease Current Visit: No Status: Chronic Patient is hemodynamically stable. No signs of cardiac issues. Qualifiers: Coronary Disease-Associated Artery/Lesion type: [place] artery [place] vs. transplanted heart: [place] heart Associated angina: without angina Qualified Code(s): I25.10 - Atherosclerotic heart disease of [place] coronary artery without angina pectoris (3) Hypertension Current Visit: Yes Status: Chronic Patient has chronic hypertension. Blood pressure has been stable postoperatively. Qualifiers: Hypertension type: essential hypertension Qualified Code(s): I10 - Essential (primary) hypertension - Subjective Interval history: Patient is postoperative day #2 in the intensive care unit. He had an uneventful night except for some malfunction of the NG tube requiring his abdominal dressing to be changed. The patient has not yet had any bowel activity. His pain is under good control. He was mildly confused though this issue has been correct ed after discussion of his present clinical situation and the use of the narcotics and postanesthetic environment. Vital Signs, Last 4 Hours Temp Pulse Resp BP Pulse Ox 12/26/18 11:09 88 12/26/18 10:00 81 21 127/77 98 12/26/18 08:35 98.5 F 12/26/18 08:00 88 20 135/44 99 - Physical Examination General: Present: Conversant, No Apparent Distress HEENT: Present: Atraumatic, Normocephaly Neck: Absent: JVD Cardiac: Present: Reg Rate and Rhythm Neuro: Present: Alert and responsive, No focal deficits noted, Cranial nerves grossly intact Vascular: Present: Normal capillary refill, Pulse, normal, Surgical incisions (Dry dressing on abdominal incision). Absent: Cyanosis, Edema Abdomen: Present: Soft, Non-tender, Other (Hypoactive bowel sounds) Results 12/26/18 08:45 12/25/18 04:13 Lab Results, Last 24 hours 12/26/18 08:45 WBC 16.5 H Hgb 11.0 L Hct 32.7 L Plt Count 145 Consult Discharge Plan - Plan Referrals: Madison Saavedra CNP [Primary Care Provider] -
[2018-12-26] MEDS ORDERED: Naloxone 0.4 MG/ML INJ IVP PRN (11:50)
[2018-12-26] MEDS ORDERED: OXYCODONE Oral CONC 10 MG/0.5 ML ORAL.SYG SL PRN ×2 (11:50)
[2018-12-26] MEDS ORDERED: Ipratropium/Albuterol Neb 3 ML IH PRN (11:50)
[2018-12-26] MEDS ORDERED: Ketorolac 15 MG/ML VIAL IVP PRN (11:50)
[2018-12-26] MEDS ORDERED: Ondansetron 4 MG/2 ML VIAL IVP PRN (11:50)
--- NOTE | 2018-12-26 19:58 | Pulmonology Progress Note ---
Date of Encounter: 12/26/18 Time of Encounter: 09:00 Assessment and Plan (1) Acute respiratory failure Current Visit: Yes Status: Resolved Patient is liberated from oxygen. Patient acute respiratory failure resolved Qualifiers: Respiratory failure complication: hypoxia Qualified Code(s): J96.01 - Acute respiratory failure with hypoxia (2) Abdominal aortic aneurysm (AAA) without rupture Current Visit: Yes Status: Chronic Patient had an eventful abdominal aortic aneurysm repair. Patient is recovering well. (3) Coronary artery disease Current Visit: No Status: Chronic Patient is on carvedilol pulmonary will sign off we will transfer the service to hospitalist for medical management. Qualifiers: Coronary Disease-Associated Artery/Lesion type: [place] artery [place] vs. transplanted heart: [place] heart Associated angina: without angina Qualified Code(s): I25.10 - Atherosclerotic heart disease of [place] coronary artery without angina pectoris (4) Hypertension Current Visit: Yes Status: Chronic Started on home medication. Pulmonary signed off will transfer to the hospitalist service. Qualifiers: Hypertension type: essential hypertension Qualified Code(s): I10 - Essential (primary) hypertension Subjective Principal diagnosis: Post AAA repair Interval history: Patient does not have any acute events overnight. Objective PUL Vital signs: Last Vital Signs Temp 100.0 F H 12/26/18 16:57 Pulse 87 12/26/18 18:00 Resp 19 12/26/18 18:00 BP 133/71 12/26/18 18:00 Pulse Ox 98 12/26/18 18:00 General appearance: no acute distress Effort: normal Auscultation: bilateral: clear Cardiovascular: regular rate and rhythm Gastrointestinal: hypoactive bowel sounds Extremities: no edema normal mental status, non-focal exam mood appropriate Results - Laboratory Findings CBC and BMP: 12/26/18 08:45 12/25/18 04:13 ABG ABG pH 7.41 pH Units (7.32-7.45) 12/25/18 04:16 ABG pCO2 42 mmHg (35-45) 12/25/18 04:16 ABG pO2 85 mmHg (85-104) 12/25/18 04:16 ABG O2 Saturation 97 % (95-98) 12/25/18 04:16 Abnormal lab findings: Abnormal lab results WBC 16.5 K/mcL (4.3-11.1) H 12/26/18 08:45 RBC 3.29 M/mcL (4.19-5.50) L 12/26/18 08:45 Hgb 11.0 g/dL (12.9-16.9) L 12/26/18 08:45 Hct 32.7 % (37.5-50.1) L 12/26/18 08:45 MCH 33.4 pg (28.0-33.3) H 12/26/18 08:45 13.0 K/mcL (1.6-8.9) H 12/26/18 08:45 1.7 K/mcL (0.0-1.3) H 12/26/18 08:45 ABG pO2 274 mmHg (85-104) H 12/24/18 12:04 ABG Total CO2 28 mEq/L (20-26) H 12/25/18 04:16 ABG O2 Saturation 100 % (95-98) H 12/24/18 12:04 ABG Base Excess -4 mEq/L (-2 to 3) L 12/24/18 09:31 ABG Hematocrit 27.0 % (37.5-50.1) L 12/24/18 12:04 ABG Chloride 109 mEq/L (98-107) H 12/24/18 12:04 VBG pCO2 40 mmHg (41-51) L 12/24/18 11:39 VBG pO2 259 mmHg (25-50) H 12/24/18 11:39 VBG Hematocrit 31.0 % (37.5-50.1) L 12/24/18 11:39 Glucose 138 mg/dL (60-95) H 12/24/18 12:04 Glucose 138 mg/dL (70-105) H 12/25/18 04:13 Whole Bld Glucose 141 mg/dl (65-95) H 12/24/18 11:39 POC Glucose 110 mg/dL (70-99) H 12/25/18 23:55 Calcium 8.5 mg/dL (8.6-10.3) L 12/24/18 15:11 1.01 mmol/L (1.15-1.35) L 12/24/18 12:04 Crossmatch See Detail 12/19/18 11:10 - Clinical Findings Intake & Output: Intake & Output 12/26/18 12/26/18 12/26/18 07:59 15:59 23:59 Output Total 700 / 1725 700 / 1725 325 / 1725 Balance -700 / -1725 -700 / -1725 -325 / -1725 Weight 76.6 kg Consult Discharge Plan - Plan Referrals: Madison Saavedra [employer] C[employer] MACHINE OPERATOR [Primary Care Provider] -
[2018-12-27 04:31] LABS: Basophils % 0.2 %; Eosinophils % 0.1 %; Hematocrit 31.6 % (37.5-50.1); Hemoglobin 10.9 g/dL (12.9-16.9); Immature Granulocytes % 0.8 % (0-4); Lymphocytes # 1.6 K/mcL (0.6-4.6); Lymphocytes % 9.8 %; Mean Corpuscular HGB Conc 34.5 g/dL (31.6-35.5); Mean Corpuscular Hemoglobin 33.6 pg (28.0-33.3); Mean Corpuscular Volume 97.5 fL (83.0-100.0); Mean Platelet Volume 9.7 fL (9.4-12.4); Monocytes # 1.8 K/mcL (0.0-1.3); Monocytes % 11.2 %; Neutrophils # 12.8 K/mcL (1.6-8.9); Platelet Count 170 K/mcL (140-400); Red Blood Count 3.24 M/mcL (4.19-5.50); Red Cell Distribution Width 12.5 % (11.5-14.5); Segmented Neutrophils % 77.9 %
[2018-12-27] MEDS: Famotidine 20 MG/2 ML VIAL IVP SCH (06:10)
--- NOTE | 2018-12-27 07:32 | Vascular/Endovas Progress Note ---
Date of Encounter: 12/27/18 Time of Encounter: 07:29 - Assessment and plan (1) Abdominal aortic aneurysm (AAA) without rupture Current Visit: Yes Status: Chronic Patient is postoperative day #3 following open repair of abdominal aortic aneurysm. Patient has remained hemodynamically stable. Patient has had no issues in regards to cardiac pulmonary or renal issues. Patient awaiting transfer to [address] [place] [address] since postoperative day #1. Patient has had resolution of postop ileus and return to normal bowel function as expected following open aneurysm surgery. D/C nasogastric suction. Begin clear liquid diet and advanced cardiac diet as tolerated. Continue physical activity and ambulation. (2) Coronary artery disease Current Visit: No Status: Chronic Patient is hemodynamically stable. No signs of cardiac issues. Qualifiers: Coronary Disease-Associated Artery/Lesion type: [place] artery [place] vs. transplanted heart: [place] heart Associated angina: without angina Qualified Code(s): I25.10 - Atherosclerotic heart disease of [place] coronary artery without angina pectoris (3) Hypertension Current Visit: Yes Status: Chronic Patient has chronic hypertension. Blood pressure has been stable postoperativel y. Qualifiers: Hypertension type: essential hypertension Qualified Code(s): I10 - Essential (primary) hypertension - Subjective Interval history: Patient is postoperative day #3 in the intensive care unit. The patient had an uneventful night. Patient is anxious to leave the intensive care unit. Patient had a bowel movement earlier this morning. Vital Signs, Last 4 Hours Temp Pulse Resp BP Pulse Ox 12/27/18 06:00 90 21 112/95 94 12/27/18 04:59 98.6 F 12/27/18 04:00 90 20 150/78 95 - Physical Examination General: Present: Conversant, No Apparent Distress HEENT: Present: Atraumatic Neck: Absent: JVD Cardiac: Present: Reg Rate and Rhythm Neuro: Present: Alert and responsive, No focal deficits noted Vascular: Present: Pulse, normal, Surgical incisions (Abdominal incision dressing was removed. The abdominal incision is clean and dry. The abdomen is scaphoid. He has active bowel sounds.) Abdomen: Present: Soft, Non-tender Results 12/27/18 04:05 12/25/18 04:13 Lab Results, Last 24 hours 12/26/18 12/27/18 08:45 04:05 WBC 16.5 H 16.5 H Hgb 11.0 L 10.9 L Hct 32.7 L 31.6 L Plt Count 145 170 Consult Discharge Plan - Plan Referrals: Madison Saavedra CNP [Primary Care Provider] -
[2018-12-27] MEDS ORDERED: *HR* HYDROcodone/Acet 5/325 mg TABLET PO PRN (07:37)
--- NOTE | 2018-12-28 13:36 | Vascular/Endovas Progress Note ---
Date of Encounter: 12/28/18 Time of Encounter: 13:34 - Assessment and plan (1) Abdominal aortic aneurysm (AAA) without rupture Current Visit: Yes Status: Chronic Patient is postoperative day #4 following open repair of abdominal aortic aneurysm. Patient has remained hemodynamically stable. Patient has had no issues in regards to cardiac pulmonary or renal issues. Patient is doing well. We will increased ambulation today. Anticipate patient to be discharged as early as tomorrow morning if he remains stable. (2) Coronary artery disease Current Visit: No Status: Chronic Patient is hemodynamically stable. No signs of cardiac issues. Qualifiers: Coronary Disease-Associated Artery/Lesion type: [place] artery [place] vs. transplanted heart: [place] heart Associated angina: without angina Qualified Code(s): I25.10 - Atherosclerotic heart disease of [place] coronary artery [place] angina pectoris (3) Hypertension Current Visit: Yes Status: Chronic Patient has chronic hypertension. Blood pressure has been stable postoperatively. Qualifiers: Hypertension type: essential hypertension Qualified Code(s): I10 - Essential (primary) hypertension - Subjective Interval history: Patient is postoperative day #4 and is now on 2 N. The patient had an uneventful night. Patient had a bowel movement earlier this morning. Patient is tolerating diet. Vital Signs, Last 4 Hours Temp Pulse Resp BP Pulse Ox 12/28/18 11:25 98.2 F 73 18 111/64 97 - Physical Examination General: Present: Conversant, No Apparent Distress Cardiac: Present: Reg Rate and Rhythm, Normal S1 and S2 Lungs: Present: Decreased breath sounds Neuro: Present: Alert and responsive Vascular: Present: Surgical incisions (Abdominal incision is clean and dry and healing well.) Abdomen: Present: Soft, Non-tender, Other (Active bowel sounds) Skin: Present: No rashes noted on visualized skin Results 12/27/18 04:05 12/25/18 04:13 Consult Discharge Plan - Plan Referrals: Madison Saavedra CNP [Primary Care Provider] -
[2018-12-29 11:29] VITALS: BP 115/65
--- NOTE | 2018-12-29 13:24 | Discharge Summary ---
Orders not resulted at time of discharge: Pending orders 12/19/18 11:10 Red Blood Cells [BBK] Routine 12/24/18 09:09 US anesthesia pain block [US] Stat Date of Encounter: 12/29/18 Time of Encounter: 13:21 - Discharge Diagnosis (1) Abdominal aortic aneurysm (AAA) without rupture Priority: Primary Status: Chronic Comments: Expanding abdominal aortic aneurysm. Anatomy was not appropriate for en dovascular repair. Patient had open repair of aneurysm with 18 x 9 mm Dacron prosthesis. (2) Coronary artery disease Priority: Secondary Status: Chronic Comments: Stable coronary artery disease. Qualifiers: Coronary Disease-Associated Artery/Lesion type: [place] artery [place] vs. transplanted heart: [place] heart Associated angina: without angina Qualified Code(s): I25.10 - Atherosclerotic heart disease of [place] coronary artery without angina pectoris (3) Hypertension Priority: Secondary Status: Chronic Comments: History of chronic hypertension Qualifiers: Hypertension type: essential hypertension Qualified Code(s): I10 - [place] l (primary) hypertension - Hospital Course Hospital course: Mr. Villareal is a 68 year old male With expanding abdominal aortic aneurysm. Patient was taken to surgery for an open abdominal aortic aneurysm repair. Patient had 18 x 9 mm Dacron prosthesis. Patient had uneventful postoperative course. The patient was able to be extubated in the operating room. He was hemodynamically stable postoperatively. He had palpable lower extremity pulses. His abdominal incision was healing well. He had no periprocedural complications. He required no blood tr ansfusions following surgery. Patient was ambulating in the hallways and was tolerating a diet. He was felt fit for discharge on postoperative day #5. Instructions were given in regards to his diet and medications prior to discharge. All questions were answered. - Time Spent with Patient Total time spent providing and/or coordinating discharge services: - Discharge Medications Prescriptions: New HYDROcodone/Acet 5/325 mg [[place] 5-325 mg] 1 tab PO Q6H PRN 7 Days #10 tablet PRN Reason: Pain Continued Simvastatin [Zocor] 40 mg PO HS Gabapentin 600 mg PO BID Carvedilol 3.125 mg PO BID [place]-3/Dha/Epa/Fish Oil [Fish Oil 1,000 mg Softgel] 1 cap PO DAILY Multivitamin [One Daily Essential] 1 tab PO DAILY Aspirin [Adult Aspirin] 81 mg PO DAILY Home Medications: Aspirin [Adult Aspirin] 81 mg PO DAILY 12/24/18 [History] Carvedilol 3.125 mg PO BID 12/24/18 [History] Gabapentin 600 mg PO BID 12/24/18 [History] Multivitamin [One Daily Essential] 1 tab PO DAILY 12/24/18 [History] [place]-3/Dha/Epa/Fish Oil [Fish Oil 1,000 mg Softgel] 1 cap PO DAILY 12/24/18 [History] Simvastatin [Zocor] 40 mg PO HS 12/24/18 [History] HYDROcodone/Acet 5/325 mg [[place] 5-325 mg] 1 tab PO Q6H PRN 7 Days #10 tablet 12/29/18 [Rx] Allergies/Adverse Reactions: Allergy/AdvReac Type Severity Reaction Status Date / Time Penicillins Allergy Hives Verified 12/24/18 07:33 Date of admission: 12/24/18 12:51 Primary care physician: Madison Saavedra Consults: Pulmonary intensive care Procedure(s) Performed: Open repair of abdominal aortic aneurysm Discharging clinician: Eamon Lee Anticipated date of discharge: 12/29/18 Exam Vital Signs, Last 4 Hours Temp Pulse Resp BP Pulse Ox 12/29/18 11:27 98.2 F 64 18 115/65 99 General: Present: Conversant, No Apparent Distress HEENT: Present: Atraumatic Neck: Absent: JVD Cardiac: Present: Reg Rate and Rhythm, Normal S1 and S2 Lungs: Present: Decreased breath sounds, Other (Scattered crackles and lower one third bilaterally.) Neuro: Present: Alert and responsive, No focal deficits noted Abdomen: Present: Soft, Non-tender Vascular: Present: Pulse, normal, Surgical incisions (Abdominal incision is clean and dry and healing well.) - Patient Status Disposition: Home, Self-Care Condition: Good Functional capacity at discharge: independent ambulation Overall status at discharge: patient is progressing back to baseline - Discharge Instructions Follow Up With: Madison Saavedra CNP [Primary Care Provider] - Eamon Lee MD [Partnered Physician] - (Follow-up with Dr. Lee in 2 weeks. Call vascular surgery clinic to arrange appointment date and time.) Additional Instructions: No lifting greater than 10 pounds. No manual labor. No automobile driving. Resume usual home medications. Using incentive spirometer 10 times an hour while awake. After 2 weeks to scarred spirometer. Ambulate minimum of 20 minutes twice a day. Patient may use stairs or treadmill. - Diet and Activity Activity: increase activity as tolerated Diet: low fat, low cholesterol
== END 2018-12-29 13:53 | disposition home or self-care (01) | DRG 268 ==
LOC: SAMDAY 06:42 → ICNU 12:51 → 2NNU 12-27 13:07
PROVIDERS: ADMIT Surgery Vascular Surgery; ATTEND Surgery Vascular Surgery